=== PATIENT | male | born 1980 | race Caucasian/White ===

== ENCOUNTER 2016-11-24 19:56 | Emergency (ER) | payer SELFPAY ==
[2016-11-24] MEDS ORDERED: NO HOME MEDICATION XX (20:57)
[2016-11-24] MEDS ORDERED: CYCLOBENZAPRINE10 M1 PO (21:57)
[2016-11-24] MEDS ORDERED: MEDROL4 M2 PO (21:57)
== END 2016-11-24 22:12 ==
LOC: EDMED 19:56
DX: M54.41 Lumbago with sciatica, right side (principal); Z88.0 Allergy status to penicillin
CPT/HCPCS: J1170